=== PATIENT | female | born 1960 | race Caucasian/White ===

== ENCOUNTER 2024-06-06 15:55 | Outpatient (CLI) | payer BC ==
--- NOTE | 2024-06-06 16:45 | XRAY Report ---
PROCEDURE: Lumbar Spine 2-3V INDICATIONS: L SIDED SCIATICA TECHNIQUE: 3 views of the lumbar spine were acquired. COMPARISON: None. FINDINGS: Surgical change: None. Bones: Partial lumbarization of S1. There is normal bony alignment. Multilevel facet arthropathy. No vertebral body compression fractures. No suspicious bony lesions. Soft tissues: Overlying bowel gas pattern is normal. No suspicious soft tissue calcifications. IMPRESSION: Degenerative change. No acute bony abnormality. Reviewed by: Dustin Britt MD on 06/06/2024 4:44 PM PDT Approved by: Dustin Britt MD on 06/06/2024 4:44 PM PDT Station ID: [id number]
== END 2024-06-06 15:56 | disposition home or self-care (01) ==
LOC: DI 15:55
PROVIDERS: ATTEND Nurse Practitioner Family
DX: M54.32 Sciatica, left side (principal); M47.816 Spondylosis without myelopathy or radiculopathy, lumbar region